=== PATIENT | female | born 1945 | race African-American/Black ===

== ENCOUNTER 2018-03-07 22:19 | Emergency (ER) | payer MEDICARE ==
[2018-03-07] MEDS ORDERED: IPRATROPIUM/ALBUTEROL 3 ML VIAL NEB ONE (22:27)
--- NOTE | 2018-03-07 22:54 | RAD ---
CLINICAL HISTORY: hypoxia COMPARISON: None. TECHNIQUE: XR CHEST 1 VIEW 03/07/2018 10:26 PM [employer]FW[employer] COUNSELOR FINDINGS: The cardiac silhouette is displaced into the left chest. Lungs are clear without consolidation, atelectasis, mass or edema. There is a small left pleural effusion. There is no pneumothorax. There are no acute osseous findings. Tracheostomy is present. Left chest is completely opacified. IMPRESSION: Opacification of the left chest, likely due to significant component of atelectasis with shift of the mediastinal structures into the left chest. Consider bronchoscopy. Electronically signed by: John Frye MD 03/07/2018 10:53 PM [employer] COUNSEL[employer]
[2018-03-07] MEDS ORDERED: cefTRIAXone SODIUM 1 GM in SODIUM CHL 0.9% 50ML MIN-BAG+ 50 ML IVPB ONE (23:09)
[2018-03-07] MEDS ORDERED: AZITHROMYCIN 250 MG TAB PO ONE (23:09)
[2018-03-07] MEDS ORDERED: SODIUM CHLORIDE 0.9% 1000ML 1,000 ML IVS ONE (23:09)
--- NOTE | 2018-03-07 23:12 | ED.PDOC ---
History of Present Illness - General Chief Complaint: Respiratory Problem Time Seen by Provider: 03/07/18 22:26 Source: EMS, long term records Exam Limitations: clinical condition, physical impairment - History of Present Illness Initial Comments: Patient presents from [facility] with hypoxia that started today. She has been treated for pneumonia for the past 10 days with Levaquin. No culture is a vailable. Patient is a chronic ventilator patient s/p CVA and therefore cannot give any history. No other information is available. Timing/Duration: unsure Severity: severe Allergies/Adverse Reactions: Allergies Penicillins Allergy (Verified 03/07/18 23:07) Unknown Cantaloupe Allergy (Uncoded 03/07/18 23:07) Unknown Review of Systems - Review of Systems Unable to Obtain Due To: condition, intubated Family Medical History - Family History Mother Family History: Unknown Living Status: Physical Exam - Physical Exam General Appearance: Lethargic Eye Exam: bilateral normal Ears, Nose, Throat: normal ENT inspection Neck: supple Respiratory: plerual rub - decreased breath sound in right middle and lower lobes with scant crackles Cardiovascular/Chest: tachycardia Gastrointestinal/Abdominal: normal bowel sounds, non tender, soft Extremity: no pedal edema Skin Exam: normal color Lymphatic: no adenopathy Progress - Progress Progress: 03/08/18 00:19 Laboratory Tests 03/07/18 03/07/18 03/07/18 22:42 22:42 22:42 WBC 27.1 H* RBC 2.56 L Hgb 7.9 L* Hct 24.2 L MCV 94.6 MCH 30.8 MCHC 32.5 L RDW 17.1 H Plt Count 297 MPV 6.5 L Absolute Neuts (auto) 22.20 H Absolute Lymphs (auto) 3.50 H Absolute Monos (auto) 1.10 H Absolute Eos (auto) 0.20 Absolute Basos (auto) 0.10 Neutrophils % 81.7 H Neutrophils % (Manual) Lymphocytes % 13.0 L Lymphocytes % (Manual) Monocytes % 4.0 Monocytes % (Manual) Eosinophils % 0.9 L Basophils % 0.4 Band Neutrophils Eosinophils Platelet Estimate pCO2 pO2 HCO3 ABG pH ABG O2 Saturation ABG Base Excess ABG Deoxyhemoglobin Oxyhemoglobin % Carboxyhemoglobin % Methemoglobin % Sat Calc Total Hemoglobin Sodium 142 Potassium 2.6 L Chloride 102 Carbon Dioxide 26 Anion Gap 16.6 BUN 101 H* Creatinine 2.25 H BUN/Creatinine Ratio 44.9 H Random Glucose 322 H Serum Osmolality 327.1 H* Lactic Acid Calcium 8.8 Total Bilirubin 0.6 AST 38 ALT 25 Alkaline Phosphatase 216 H Creatine Kinase 42 CK-MB (CK-2) 1.4 Troponin I 0.05 B-Natriuretic Peptide 319.0 H* Serum Total Protein 10.3 H Albumin 2.4 L Globulin 7.9 H Albumin/Globulin Ratio 0.3 L 03/07/18 03/07/18 03/07/18 22:42 23:22 23:32 WBC RBC Hgb Hct MCV MCH MCHC RDW Plt Count MPV Absolute Neuts (auto) Absolute Lymphs (auto) Absolute Monos (auto) Absolute Eos (auto) Absolute Basos (auto) Neutrophils % Neutrophils % (Manual) 86.0 H Lymphocytes % Lymphocytes % (Manual) 8.0 Monocytes % Monocytes % (Manual) 2.0 Eosinophils % Basophils % Band Neutrophils 3.0 H Eosinophils 1.0 Platelet Estimate Normal pCO2 38 pO2 56 L HCO3 26.9 ABG pH 7.470 H ABG O2 Saturation 90.9 L ABG Base Excess 3.4 ABG Deoxyhemoglobin 8.9 H Oxyhemoglobin % 89.0 L Carboxyhemoglobin % 0.5 Methemoglobin % Sat 1.6 H Calc Total Hemoglobin 10.6 L Sodium Potassium Chloride Carbon Dioxide Anion Gap BUN Creatinine BUN/Creatinine Ratio Random Glucose Serum Osmolality Lactic Acid 2.9 H* Calcium Total Bilirubin AST ALT Alkaline Phosphatase Creatine Kinase CK-MB (CK-2) Troponin I B-Natriuretic Peptide Serum Total Protein Albumin Globulin Albumin/Globulin Ratio CXR showed opacification of the left chest. wbc 27.1 UA positive for UTI and Lactic acid 2.9. Patient started on NS IV bolus and a second was started after the first. Blood cultures taken and sent. Rocephin 1 gram IV and Azithromycin 500 mg IV x one given. Duonebs given. Saturations improved to the 90s. Patient remained tachycardic likely due to sepsis. Placed on mechanical ventilator upon arrival. Transferred to [facility]. 03/08/18 00:20 Departure - Departure Clinical Impression: Urinary tract infection, Septic shock Disposition: Transfer to Hospital Condition: Serious Departure Forms: ED Discharge - Pt. Copy, Patient Portal Self Enrollment Diet: other - NPO Activity: other - as per hospitalist
[2018-03-07] MEDS ORDERED: cefTRIAXone SODIUM 1 GM VIAL ONE (23:14)
[2018-03-07] MEDS ORDERED: SODIUM CHL 0.9% 50ML MIN-BAG+ 50 ML IVPB ONE (23:14)
[2018-03-07] MEDS ORDERED: KCL 20MEQ/WATER FOR INJ 100ML 20 MEQ in PREMIX BAG 1 BAG IVPB ONE (23:33)
[2018-03-08] MEDS ORDERED: KCL 20MEQ/WATER FOR INJ 100ML 100 ML IVPB ONE (00:13)
[2018-03-08] MEDS ORDERED: ONDANSETRON INJ 4 MG/2 ML VIAL ONE (00:13)
[2018-03-08] MEDS ORDERED: SODIUM CHLORIDE 0.9% 1000ML 1,000 ML IVS ONE (00:18)
[2018-03-08] MEDS ORDERED: ONDANSETRON INJ 4 MG/2 ML VIAL IV ONE (00:21)
[2018-03-08 01:07] VITALS: BP 117/82; TEMP 98.3; O2SAT 99
== END 2018-03-08 01:24 | disposition short-term general hospital (02) ==
LOC: ER 22:19 → EDBD 22:19 → ER 03-08 01:24
DX: R65.21 Severe sepsis with septic shock (principal); N39.0 Urinary tract infection, site not specified; R00.0 Tachycardia, unspecified; Z87.01 Personal history of pneumonia (recurrent); Z99.11 Dependence on respirator [ventilator] status; Z88.0 Allergy status to penicillin
CPT/HCPCS: 36415; 36600; 71045; 80053; 81001; 82550; 82553; 82803; 82805; 83605; 83880; 84484; 85025; 87040; 87077; 87086; 93005; 94002; 94640; J0696; J2405; J3480; J7030; J7050; J7620; Q0144

== ENCOUNTER → 2018-03-29 | Outpatient (CLI) | payer MEDICARE | LOC: GOCC 19:12 | PROVIDERS: ATTEND Internal Medicine | DX: R09.3 Abnormal sputum (principal) ==